=== PATIENT | male | born 1985 | race Two or more races ===

== ENCOUNTER 2017-10-30 18:36 | Emergency (ER) | payer BC ==
[~2017-10-30] VITALS: Ht 190.5 cm; Wt 81.6 kg
[2017-10-30 19:09] VITALS: BP 151/94
--- NOTE | 2017-10-30 19:27 | NUR ---
CALLED XRAY RE: CXR.
== END 2017-10-30 21:05 | disposition home or self-care (01) ==
LOC: ER 18:38
DX: J20.9 Acute bronchitis, unspecified (principal)
CPT/HCPCS: 71045-TC; A4606; Z7610